=== PATIENT | female | born 1995 | race African-American/Black ===

== ENCOUNTER 2017-05-27 11:59 | Emergency (ER) | payer SELFPAY ==
--- NOTE | 2017-05-27 13:44 | ER Document Report ---
HPI - HPI Patient complains to provider of: sore throat, fever Onset: Other Onset/Duration: Sudden Quality of pain: Achy Severity: Moderate Pain Level: 4 Context: Patient states she has had a sore throat and fever since Friday. No known sick exposures, but states she does work in a [employer] Associated Symptoms: Fever, Sore throat. denies: Rhinnorhea, Sinus pain/ drainage Exacerbated by: Denies Relieved by: Denies Similar symptoms previously: Yes Recently seen / treated by doctor: No - ROS ROS below otherwise negative: Yes Systems Reviewed and Negative: Yes All other systems reviewed and negative - CONSTITUTIONAL Constitutional: REPORTS: Fever - EENT EENT: REPORTS: Sore Throat. DENIES: Ear Pain, Nasal Drainage-Clear, Nasal Drainage-Purulent, Congestion - NEURO Neurology: DENIES: Headache - CARDIOVASCULAR Cardiovascular: DENIES: Chest pain - RESPIRATORY Respiratory: DENIES: Trouble Breathing - GASTROINTESTINAL Gastrointestinal: DENIES: Abdominal Pain, Black / Bloody Stools - URINARY Urinary: DENIES: Dysuria - MUSCULOSKELETAL Musculoskeletal: DENIES: Extremity pain - DERM Skin Color: Normal Past Medical History - General Information source: Patient - Social History Smoking Status: Never Smoker Chew tobacco use (# tins/day): No Frequency of alcohol use: Occasional Drug Abuse: None Lives with: Family Family History: Reviewed & Not Pertinent Patient has suicidal ideation: No Patient has homicidal ideation: No Pulmonary Medical History: Reports: Hx Asthma Surgical Hx: Negative Vertical Provider Document - CONSTITUTIONAL Agree With Documented VS: Yes Exam Limitations: No Limitations General Appearance: WD/WN, No Apparent Distress - INFECTION CONTROL TRAVEL OUTSIDE OF THE [place] IN LAST 30 DAYS: No - HEENT HEENT: Atraumatic, Normocephalic, Pharyngeal Erythema Notes: nose and throat are normal, tonsils swollen and red - NECK Neck: Thyroid Normal, Lymphadenopathy-Left - RESPIRATORY Respiratory: Breath Sounds Normal, No Respiratory Distress O2 Sat by Pulse Oximetry: 98 - CARDIOVASCULAR Cardiovascular: Regular Rate, Regular Rhythm - GI/ABDOMEN Gastrointestinal: Abdomen Soft - MUSCULOSKELETAL/EXTREMETIES Musculoskeletal/Extremeties: MAEW - NEURO Level of Consciousness: Awake, Alert, Appropriate - DERM Integumentary: Warm, Dry Course - Vital Signs Vital signs: Temp Pulse Resp BP Pulse Ox 98.6 F 80 14 126/76 H 98 05/27/17 12:04 05/27/17 12:04 05/27/17 12:04 05/27/17 12:04 05/27/17 12:04 Discharge - Discharge Clinical Impression: Pharyngitis Qualifiers: Pharyngitis/tonsillitis etiology: unspecified etiology Qualified Code(s): J02.9 - Acute pharyngitis, unspecified Condition: Good Disposition: HOME, SELF-CARE Instructions: Penicillin V K ([facility]), Sore Throat ([facility]) Additional Instructions: tylenol or motrin prn rapid strep came back negative, throat culture takes about 3 days to result change toothbrush in two days push fluids finish all antibiotics follow up with PCP or return if any problems Prescriptions: Penicillin V Potassium [Penicillin Vk 500 mg Tablet] 500 mg PO BID #20 tablet Forms: Return to Work
[2017-05-27 14:03] VITALS: BP 127/86
== END 2017-05-27 14:03 | disposition home or self-care (01) ==
LOC: ER 11:59
DX: J02.9 Acute pharyngitis, unspecified (principal); R50.9 Fever, unspecified; J45.909 Unspecified asthma, uncomplicated; R59.0 Localized enlarged lymph nodes
CPT/HCPCS: 87070; 87880; 99283

== ENCOUNTER 2017-09-21 11:19 | Emergency (ER) | payer SELFPAY ==
[2017-09-21 11:29] VITALS: BP 122/64
--- NOTE | 2017-09-21 11:32 | ER Document Report ---
HPI - HPI Patient complains to provider of: Right jaw swelling Onset: Other - Several days Onset/Duration: Gradual Pain Level: 2 Context: 22-year-old female complaining of right jaw pain and swelling for several days. She has partially erupted wisdom teeth. No fever. Associated Symptoms: None Exacerbated by: Denies Relieved by: Denies Similar symptoms previously: No Recently seen / treated by doctor: No - ROS ROS below otherwise negative: Yes Systems Reviewed and Negative: Yes All other systems reviewed and negative Past Medical History - General Information source: Patient - Social History Smoking Status: Never Smoker Frequency of alcohol use: None Drug Abuse: None Lives with: Family Family History: Reviewed & Not Pertinent Pulmonary Medical History: Reports: Hx Asthma Renal/ Medical History: Denies: Hx Peritoneal Dialysis Surgical Hx: Negative Vertical Provider Document - CONSTITUTIONAL Agree With Documented VS: Yes Exam Limitations: No Limitations General Appearance: No Apparent Distress - INFECTION CONTROL TRAVEL OUTSIDE OF THE [place] IN LAST 30 DAYS: No - HEENT HEENT: Normocephalic Mouth Diagram: 1 - partially erupted with inflamed overlying gingiva - NECK Neck: Supple - RESPIRATORY Respiratory: Breath Sounds Normal, No Respiratory Distress - CARDIOVASCULAR Cardiovascular: Regular Rate, Regular Rhythm - NEURO Level of Consciousness: Awake - DERM Integumentary: Warm, Dry Course - Vital Signs Vital signs: Temp Pulse Resp BP Pulse Ox 98.0 F 59 L 16 122/64 98 09/21/17 11:27 09/21/17 11:27 09/21/17 11:27 09/21/17 11:27 09/21/17 11:27 Discharge - Discharge Clinical Impression: Acute pericoronitis Condition: Good Disposition: HOME, SELF-CARE Instructions: Acetaminophen, Anti-Inflammatory Medication ([facility]), Dentist, Penicillin V K ([facility]) Additional Instructions: warm compress see the dentist Tylenol Motrin Penicillin until it is gone Prescriptions: Ibuprofen [Motrin 800 mg Tablet] 800 mg PO Q8HP PRN #30 tablet PRN Reason: Penicillin V Potassium [Penicillin Vk 500 mg Tablet] 500 mg PO QID #40 tablet Forms: Return to Work
[2017-09-21] MEDS ORDERED: ONDANSETRON 4 MG TAB.RAPDIS PO ONE (11:38)
[2017-09-21] MEDS ORDERED: ACETAMINOPHEN 325 MG TABLET PO ONE (11:38)
[2017-09-21] MEDS ORDERED: IBUPROFEN 800 MG TABLET PO ONE (11:38)
[2017-09-21] MEDS ORDERED: PENICILLIN V POTASSIUM 500 MG TABLET PO ONE (11:38)
== END 2017-09-21 11:53 | disposition home or self-care (01) ==
LOC: ER 11:19
DX: K05.20 Aggressive periodontitis, unspecified (principal); K00.6 Disturbances in tooth eruption; J45.909 Unspecified asthma, uncomplicated
CPT/HCPCS: 99283; S0119

== ENCOUNTER 2018-05-29 17:03 | Emergency (ER) | payer SELFPAY ==
[2018-05-29 17:12] VITALS: BP 124/74
[2018-05-29] MEDS ORDERED: ALBUTEROL SULFATE 0.083% NEB 2.5 MG/3 ML AMPUL NEB ONE (17:58)
--- NOTE | 2018-05-29 18:00 | ER Document Report ---
ED Respiratory Problem - General Chief Complaint: Asthma Exacerbation Stated Complaint: DIFFICULTY BREATHING Time Seen by Provider: 05/29/18 17:55 Mode of Arrival: Ambulatory Information source: Patient Notes: History of Present Illness Chief Complaint: [cough] Cough quality= [dry], [without] sputum [No] hemoptysis [ 23 years old female with a history of asthma but not active for a long time presents today with cough and wheezing since yesterday. No fever chills runny nose sore throat. Denies any chest pain. Denies any nausea or vomiting. Denies any other constitutional symptoms] History obtained from [patient] Symptoms began: [past few days] Onset: [gradual] Timing: [constant, lasts hours, persists] Intensity: [moderate] Location: [respiratory tract] Radiation: [none] Migration: [none] Aggravating factors: [none] Relieving factors: [none] Review of Systems : All other systems negative as reviewed. CONSTITUTIONAL No Fever. EYES No eye pain. ENT No sore throat CARDIOVASCULAR No chest pain. RESPIRATORY No SOB, No wheezing, No orthopnea, No pedal edema. GI No abdominal pain, no vomiting, no diarrhea. GENITOURINARY No dysuria. SKIN No rash. NEUROLOGIC No headache. MUSCULOSKELETAL No back pain, No calf pain, No calf swelling Physical Exam CONSTITUTIONAL Vital signs reviewed, Patient has normal respiratory rate, Well appearing, Patient appears comfortable, normal stature. HEAD Atraumatic, Normocephalic. EYES Eyes are normal to inspection. ENT Ears normal to inspection, Nose examination normal. NECK No jugular venous distention. RESPIRATORY CHEST Breath sounds [decreased breath sounds with scattered expiratory wheezing.], No respiratory distress. CARDIOVASCULAR RRR, No murmurs, Normal S1 S2, No rub, No gallop. ABDOMEN Abdomen is nontender, No masses, Bowel sounds normal, No distension, No peritoneal signs. BACK Normal inspection. UPPER EXTREMITY Inspection normal. LOWER EXTREMITY Inspection normal. NEURO No facial droop, normal speech. SKIN Skin is warm, Skin is dry, Skin is normal color. PSYCHIATRIC Normal affect. TRAVEL OUTSIDE OF THE [place] IN LAST 30 DAYS: No - HPI Notes: Dictated - Related Data Allergies/Adverse Reactions: No Known Allergies Allergy (Verified 05/29/18 17:04) Past Medical History - Social History Smoking Status: Never Smoker Frequency of alcohol use: None Drug Abuse: None Lives with: Family Family History: Reviewed & Not Pertinent Pulmonary Medical History: Reports: Hx Asthma Renal/ Medical History: Denies: Hx Peritoneal Dialysis Review of Systems - Review of Systems Notes: Dictated Physical Exam - Vital signs Vitals: Temp Pulse Resp BP Pulse Ox 99.1 F 79 16 124/74 98 05/29/18 17:08 05/29/18 17:08 05/29/18 17:08 05/29/18 17:08 05/29/18 17:08 - Notes Notes: Dictated Course - Re-evaluation Re-evalutation: 05/29/18 18:47 Given bronchodilator treatment with clinical improvement discharge home - Vital Signs Vital signs: Temp Pulse Resp BP Pulse Ox 99.1 F 79 16 124/74 98 05/29/18 17:08 05/29/18 17:08 05/29/18 17:08 05/29/18 17:08 05/29/18 17:08 Discharge - Discharge Clinical Impression: Asthmatic bronchitis Qualifiers: Asthma severity: moderate Asthma persistence: persistent Asthma complication type: with acute exacerbation Qualified Code(s): J45.41 - Moderate persistent asthma with (acute) exacerbation Condition: Fair Disposition: HOME, SELF-CARE Instructions: Bronchitis With Bronchospasm (Wheezing) ([facility]) Prescriptions: Albuterol Sulfate [Proair Hfa Inhalation Aerosol 8.5 gm Mdi] 2 puff IH Q4 PRN # 1 mdi PRN Reason: Fluticasone Propionate [Flovent HFA 220 mcg MDI] 1 puff IH BID #1 mdi Hydrocodone/Chlorphen P-Stirex [Tussionex Pennkinetic Susp] 5 ml PO BID #100 [id number] Prednisone 10 mg PO ASDIR PRN 6 Days #1 tab.ds.pk PRN Reason:
== END 2018-05-29 18:55 | disposition home or self-care (01) ==
LOC: ER 17:03
DX: J45.41 Moderate persistent asthma with (acute) exacerbation (principal)
CPT/HCPCS: 81025; 94640; 99285